=== PATIENT | female | born 1960 | race Caucasian/White ===

== ENCOUNTER 2017-05-30 10:46 | Emergency (ER) | payer BC ==
[2017-05-30 13:21] VITALS: BP 109/77
--- NOTE | 2017-05-30 13:34 | UC ---
Lower Extremity/Ankle HPI - HPI Summary HPI Summary: 57 y/o female presents to the urgent care c/o RT ankle pain and swelling s/p been hit by a 300lb calf that fell on top of her RT ankle around 0930 am. Pt Pt states she heard a pop. Pain is throbbing, 8/10 and associated with mild numbness over the lateral side of her Rt ankle. She was not able to bear weight after the incident. she has not taking anything to alleviate symptoms. Pt denies SOB, chest pain, abdominal pain, N/V/D - History of Current Complaint Chief Complaint: UCLowerExtremity Stated Complaint: ANKLE INJURY Time Seen by Provider: 05/30/17 13:32 Hx Obtained From: Patient Hx Last Menstrual Period: Menopausal ?: No Onset/Duration: Sudden Onset, Lasting Hours - 3 hrs, Still Present Severity Initially: Moderate Severity Currently: Moderate Pain Intensity: 8 Pain Scale Used: 0-10 Numeric Aggravating Factor(s): Standing, Ambulation Alleviating Factor(s): Rest, Ice Able to Bear Weight: No - Allergies/Home Medications Allergies/Adverse Reactions: Allergies Allergy/AdvReac Type Severity Reaction Status Date / Time No Known Allergies Allergy Verified 05/30/17 13:21 PMH/Surg Hx/FS Hx/Imm Hx Previously Healthy: Yes - Pt denies PMHX - Surgical History Surgical History: Yes Surgery Procedure, Year, and Place: c-sections X2 - Social History Alcohol Use: Occasionally Substance Use Type: None Smoking Status (MU): Heavy Every Day Tobacco Smoker Type: Cigarettes - Immunization History Most Recent Influenza Vaccination: 2014 Most Recent Tetanus Shot: unknown Most Recent Pneumonia Vaccination: never Review of Systems Constitutional: Negative Skin: Negative Eyes: Negative ENT: Negative Respiratory: Negative Cardiovascular: Negative Gastrointestinal: Negative Genitourinary: Negative Motor: Decreased ROM - RT ankle s/p injury Neurovascular: Negative Musculoskeletal: Decreased ROM - Rt ankle, Other: - RT ankle pain and swelling s/p injury with a calf Neurological: Negative Psychological: Negative Is Patient Immunocompromised?: No All Other Systems Reviewed And Are Negative: Yes Physical Exam Triage Information Reviewed: Yes Vital Signs: Initial Vital Signs Temp 99.9 F 05/30/17 13:18 Pulse 86 05/30/17 13:18 Resp 18 05/30/17 13:18 BP 109/77 05/30/17 13:18 Pulse Ox 98 05/30/17 13:18 - Additional Comments Vital Signs Reviewed: Yes General: well developed, well nourished female, sitting in the examining table w /o any apparent distress Eyes: Positive: Conjunctiva Clear - PERRLA, EOMI, ENT: Positive: Normal ENT inspection, Hearing grossly normal, Pharynx normal, TMs normal Neck: Positive: Supple, Nontender, No Lymphadenopathy Respiratory: Positive: Chest non-tender, Lungs clear, Normal breath sounds, No respiratory distress Cardiovascular: Positive: RRR, No Murmur, Pulses Normal, Brisk Capillary Refill Abdomen Description: Positive: Nontender, No Organomegaly, Soft. Negative: CVA Tenderness (R), CVA Tenderness (L) Bowel Sounds: Positive: Present Musculoskeletal: - RT Ankle: Pt is unable to bear weight due to pain. The R ankle is without obvious asymmetry or deformity when compared to the L ankle. Decreased ROM due to pain. Moderate swelling at the lateral malleolus, with tenderness to palpation. No ecchymosis or bruising observed. Tenderness to palpation over the medial malleolus , no swelling observed. Talar tilt test is negative for ligament laxity to valgus or varus stress. Negative anterior drawer. Positive sensation over the Rt foot and Rt ankle, positive pulses, capillary refill intact Neurological Exam: Normal Psychological Exam: Normal Skin: warm and dry Lower Extremity Course/Dx - Course Course Of Treatment: 57 y/o female presents to the urgent care c/o RT ankle pain and swelling s/p been hit by a 300lb calf that fell on top of her RT ankle around 0930 am. Pt Pt states she heard a pop. Pain is throbbing, 8/10 and associated with mild numbness over the lateral side of her Rt ankle. She was not able to bear weight after the incident. She has not taking anything to alleviate symptoms. Pt denies SOB, chest pain, abdominal pain, N/V/D. Hx obtained. Pt given Toradol IM inj at the clinic for pain. Pt tolerated well Im inj and pain decrease. RT ankle X-ray and ordered, Impression:Mildly distracted fracture of the distal fibula metaphysis w/ mild comminution as per radiologist. Pt's ankle immobilized with a stirup splint. There was no neurovascular compromise after splint application; the splint was in good alignment and the pt had good sensation and capillary refill at the time of discharge.Pt given crutches to avoid weight bearing. Rx Naproxen PO for pain and advised RICE. Strongly advised to f/u with Orthopedic DR Gonzalez tomorrow for further evaluation and treatment. Pt Understood and geed with plan of care. Pt left the clinic hemodynamically stable, A&OX3 - Differential Dx/Diagnosis Differential Diagnosis/HQI/PQRI: Dislocation, Fracture (Closed), Fracture (Open) , Sprain, Strain, Tendonitis Provider Diagnoses: 1- RT distal oblique fibular fracture s/p trauma. 1-RT ankle pain s/p trauma Discharge - Discharge Plan Condition: Stable Disposition: HOME Prescriptions: Naproxen [Naproxen 500 mg] 500 mg PO Q8H PRN #30 tab PRN Reason: Pain Patient Education Materials: Ankle Fracture (ED) Forms: *Work Release Referrals: Josue Gonzalez MD [Medical Doctor] - 1 Day Miguel FLOYD,Navi Dunn [Primary Care Provider] - 1 Day Additional Instructions: 1- Please take medication as directed after meals for pain and swelling. 2- Apply ice, keep ankle elevated, rest and keep it immobilized with the splint. do not bear weight and use the crutches at all times 3-F/u with Orthopedic Dr Gonzalez tomorrow for further evaluation and treatment on your fibular fracture
[2017-05-30] MEDS ORDERED: Ketorolac INJ* 60 MG/2 ML VIAL IM ONE (13:48)
--- NOTE | 2017-05-30 14:03 | RAD ---
INDICATION: Traumatic fracture right ankle COMPARISON: None TECHNIQUE: AP, lateral, and oblique views were obtained. FINDINGS: There is an oblique, mildly distracted fracture the distal fibular metadiaphysis. There is mild comminution. No other fractures are evident. The ankle mortise is intact. There is lateral soft tissue swelling. IMPRESSION: FIBULAR FRACTURE.
== END 2017-05-30 14:46 | disposition home or self-care (01) ==
LOC: UCEAST 10:46
DX: S82.431A Displaced oblique fracture of shaft of right fibula, initial encounter for closed fracture (principal); W55.22XA Struck by cow, initial encounter; Y92.9 Unspecified place or not applicable; M25.571 Pain in right ankle and joints of right foot; Z78.0 Asymptomatic menopausal state; F17.210 Nicotine dependence, cigarettes, uncomplicated
CPT/HCPCS: 99213; G0463; J1885

== ENCOUNTER 2018-09-15 12:14 | Emergency (ER) | payer BC ==
--- NOTE | 2018-09-15 12:39 | UC ---
Cardiac HPI - HPI Summary HPI Summary: CHIEF COMPLAINT and HPI: This is a 58-year-old female who comes to the urgent care center with various complaints relating to dizziness. This morning she was in a shower and she lifted her left arm up overhead and she became dizzy and thought she would faint. At the time, she also had some sharp chest discomfort. This condition resolved in approximately 3 minutes. She then went to work. 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 This resolved with sitting down. 36 hours ago , overnight, she experienced leg cramps over the medial aspects of both thighs. She has had this condition before, but this was more frequent, approximately 5 times throughout the night. Approximately 3 years ago. She was fully evaluated for an elevated troponin as well as thyroid toxicosis and GERD. In the urgent care center. She is comfortable and without chest pain at the current time. An immediate EKG was sinus rhythm without ischemia. VITAL SIGNS & SaO2 REVIEWED. Within normal limits unless noted here. NURSES NOTE REVIEWED. "leg cramps innner thighs strating yesterday, this morning whil in shower left arm andhsulder numness and heavy chest pain centered. dizzy since this morning , slight nuasea /heartburn feeling. HX 3 yrs ago to ed with some troponin level elevated no cardiac diagnosis." was hopsitalized 2015 for dizziness , showed elevated troponin" - History of Current Complaint Chief Complaint: UCChestPain Stated Complaint: DICOMFORT Time Seen by Provider: 09/15/18 12:19 Hx Last Menstrual Period: Menopausal Pain Intensity: 2 - Allergy/Home Medications Allergies/Adverse Reactions: Allergies Allergy/AdvReac Type Severity Reaction Status Date / Time No Known Allergies Allergy Verified 09/15/18 12:29 Home Medications: Home Medications NK [No Home Medications Reported] 09/15/18 [History Confirmed 09/15/18] PMH/Surg Hx/FS Hx/Imm Hx - Additional Past Medical History Additional PMH: PAST MEDICAL HISTORY- evaluated for elevated troponin approximately 3 years ago.. Negative for CVD. CHRONIC and RECURRENT HEALTH PROBLEM LIST REVIEWED. anxiety, thyroid abnormality, legs crampsm smoker. Information relevant to present complaint: VISIT HISTORY REVIEWED. MEDICATIONS & ALLERGIES REVIEWED. 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 . - Surgical History Surgical History: Yes Surgery Procedure, Year, and Place: c-sections X2 - Social History Alcohol Use: Occasionally Substance Use Type: None Smoking Status (MU): Heavy Every Day Tobacco Smoker Type: Cigarettes - Immunization History Most Recent Influenza Vaccination: 2014 Most Recent Tetanus Shot: unknown Most Recent Pneumonia Vaccination: never Review of Systems All Other Systems Reviewed And Are Negative: Yes Constitutional: Positive: Negative Skin: Positive: Negative Eyes: Positive: Negative ENT: Positive: Negative Respiratory: Positive: Negative. Negative: Shortness Of Breath Cardiovascular: Positive: Negative, Chest Pain - this morning; central chest; less than 3 minutes. Negative: Palpitations Gastrointestinal: Positive: Negative Psychological: Positive: Anxious Is Patient Immunocompromised?: No Physical Exam - Summary Physical Exam Summary: Appearance: The patient is well-appearing, is in no pain or distress, and is well-nourished. Eyes: Conjunctiva are clear. Pupils are equal and reactive to light and accommodation. Extra ocular muscle movement is intact. ENT: The hearing is grossly normal, the pharynx is normal, and the TMs are normal. There is no muffled or hoarse voice. No stridor. Neck: The neck is supple and there is no lymphadenopathy. Respiratory: The chest is non-tender to palpation and without crepitus. The lungs are clear, there are normal breath sounds, and there is no respiratory distress. No wheezes, rales or rhonchi. Cardiovascular: Heart sounds reveal a regular rate and rhythm. There are no clicks, rubs or murmurs. There are no carotid bruits or thrills. Circulation is grossly intact. Abdomen: The abdomen is soft and nontender. There is no organomegaly. Bowel sounds are present and within normal limits. No point tenderness at McBurneys point. No CVA tenderness. Musculoskeletal: Strength is intact. The patient moves all extremities. Neurological: The patient is alert. Motor and sensory are examination grossly intact. Speech is normal. Mild vertigo with stand and head movement. No nystagmus. Psychological: The patient displays age appropriate behavior, and is conversant. GCS=15. Skin: Negative for rashes. Vital Signs: Initial Vital Signs Temp 99.4 F 09/15/18 12:23 Pulse 89 09/15/18 12:23 Resp 18 09/15/18 12:23 BP 110/89 05/16/19 12:23 Pulse Ox 100 09/15/18 12:23 - Assessment/Plan Course Of Treatment: MEDICAL DECISION MAKING and PLAN: This is a 58-year-old female who comes to the urgent care center with various complaints relating to dizziness. This morning she was in a shower and she lifted her left arm up overhead and she became dizzy and thought she would faint. At the time, she also had some sharp chest discomfort. This condition resolved in approximately 3 minutes. She then went to work. 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 This resolved with sitting down. 36 hours ago, overnight, she experienced leg cramps over the medial aspects of both thighs. She has had this condition before, but this was more frequent, approximately 5 times throughout the night. Approximately 3 years ago. She was fully evaluated for an elevated troponin as well as thyroid toxicosis and GERD. In the urgent care center. She is comfortable and without chest pain at the current time. An immediate EKG was sinus rhythm without ischemia. Review of systems noted that she had one episode of diarrhea at 11:30 this morning. Past medical history is contributory for anxiety, smoking, migraines and GERD. She is not taking any thyroid medication. Physical examination shows a woman resting comfortably. The examination was normal with the exception that when she stood, she did complain of a moment of vertigo when she moved her head. Orthostatics were within normal limits, however. My differential included vertigo and other conditions that could cause presyncope, but on evaluation, it appears that she most likely has vertigo and intermittent pre-syncopy, possibly related to a viral syndrome. Note is also made of her glucose of 130. Patient is also a smoker but there is no hx of MA, arrythmia of family hx of CVD. We discussed the possibility of her going to the emergency room at length. We decided that I would draw her blood and she would be seen, if at all possible, by her physician tomorrow and that she would go to the ED if she had any repeat episodes. MEDICATIONS REVIEWED. HYPERTENSION STATUS REVIEWED WITH PATIENT IF blood pressure is above 120/80. - Differential Diagnoses - Chest Pain Differential Diagnosis/HQI/PQRI: Acute MA, ACS, Chest Wall, Other: - orthostasis ; anxiety; vertigo; viral syndrome - Differential Diagnoses - Palpitations Differential Diagnosis/HQI/PQRI: Hyperventilation, Panic Disorder - Clinical Impression Provider Diagnosis: Pre-syncope Discharge - Sign-Out/Discharge Documenting (check all that apply): Patient Departure All imaging exams completed and their final reports reviewed: No Studies - Discharge Plan Condition: Stable Disposition: HOME Patient Education Materials: Vertigo (DC), Near Syncope (ED) Forms: *Work Release Referrals: Miguel FLOYD,Navi Dunn [Primary Care Provider] - Additional Instructions: WE DISCUSSED: PLEASE SEEK CARE AT THE EMERGENCY DEPARTMENT IF SYMPTOMS WORSEN OR IF NEW SYMPTOMS DEVELOP. FOLLOW UP WITH YOUR PRIMARY CARE PHYSICIAN TOMORROW. CALL US WITH ANY CONCERNS. I WILL BE HERE IN 2 DAYS. YOUR DIAGNOSIS IS: vertigo and almost fainting; your EKG was normal and your examination was normal as well. They tested your blood pressure and pulse sitting and standing and there was no abnormality there. However, you still do have the feeling of a mild kind of dizziness when you stand. I've drawn blood tests to recheck your glucose as well as your thyroid. Call your doctor for evaluation tomorrow. Go to the emergency department if you have any chest pain or shortness of breath. You may need further evaluation. YOUR PRESCRIPTION RECOMMENDATION IS: none FOR PAIN AND/OR SLEEP: For pain: Ibuprofen (Motrin and other brand names) 400-600mg PLUS acetaminophen (Tylenol and other brand names) 500mg - 1000mg every 8 hours. - Billing Disposition and Condition Condition: STABLE Disposition: Home
[2018-09-15 14:30] VITALS: BP 124/72
[2018-09-15 19:14] LABS: ABS Eosinophils 0.1 10^3/ul (0-0.6); ABS Lymphocytes 1.9 10^3/ul (1.0-4.8); ABS Monocytes 0.5 10^3/ul (0-0.8); ABS Neutrophils 2.7 10^3/ul (1.5-7.7); Eosinophil % 1.1 %; Hematocrit 40 % (35-47); Hemoglobin 13.6 g/dL (12.0-16.0); Mean Corpuscular HGB Conc 34 g/dL (31-36); Mean Corpuscular Hemoglobin 31 pg (27-31); Mean Corpuscular Volume 91 fL (80-97); Nucleated Red Blood Cells % 0.1; Platelet Count 229 10^3/uL (150-450); Red Blood Count 4.36 10^6 /uL (3.70-4.87); Red Cell Distribution Width 13 % (10.5-15); White Blood Count 5.2 10^3/uL (3.5-10.8)
[2018-09-15 19:22] LABS: Albumin 4.3 g/dL (3.2-5.2); Calcium 9.6 mg/dL (8.6-10.3); Potassium 4.2 mmol/L (3.5-5.0); Total Bilirubin 0.4 mg/dL (0.2-1.0)
[2018-09-15 19:28] LABS: Albumin/Globulin Ratio 1.5 (1-3); BUN/Creatinine Ratio 13.5 (8-20); EGFR African American 97.5 (>60); EGFR Non-African American 80.6 (>60); Globulin 2.8 g/dL (2-4); Total Protein 7.1 g/dL (6.4-8.9)
[2018-09-16 13:48] LABS: Free T4 1.23 ng/dL (0.61-1.12)
--- NOTE | 2018-09-17 10:51 | UC ---
- Progress Note Progress Note: PROGRESS NOTE: LAB RESULTS: TSH=0; FREE T-4 = 1.23 (1.12 is upper limit of normal) MDM: Patient knows about her condition and has consulted with her primary healthcare prof. No change in current treatment. Zia Chambers MD Course/Dx - Diagnoses Provider Diagnoses: Pre-syncope Discharge - Sign-Out/Discharge Documenting (check all that apply): Post-Discharge Follow Up All imaging exams completed and their final reports reviewed: No Studies - Discharge Plan Condition: Stable Disposition: HOME Patient Education Materials: Vertigo (DC), Near Syncope (ED) Forms: *Work Release Referrals: Miguel FLOYD,Navi Dunn [Primary Care Provider] - Additional Instructions: WE DISCUSSED: PLEASE SEEK CARE AT THE EMERGENCY DEPARTMENT IF SYMPTOMS WORSEN OR IF NEW SYMPTOMS DEVELOP. FOLLOW UP WITH YOUR PRIMARY CARE PHYSICIAN TOMORROW. CALL US WITH ANY CONCERNS. I WILL BE HERE IN 2 DAYS. YOUR DIAGNOSIS IS: vertigo and almost fainting; your EKG was normal and your examination was normal as well. They tested your blood pressure and pulse sitting and standing and there was no abnormality there. However, you still do have the feeling of a mild kind of dizziness when you stand. I've drawn blood tests to recheck your glucose as well as your thyroid. Call your doctor for evaluation tomorrow. Go to the emergency department if you have any chest pain or shortness of breath. You may need further evaluation. YOUR PRESCRIPTION RECOMMENDATION IS: none FOR PAIN AND/OR SLEEP: For pain: Ibuprofen (Motrin and other brand names) 400-600mg PLUS acetaminophen (Tylenol and other brand names) 500mg - 1000mg every 8 hours. - Billing Disposition and Condition Condition: STABLE Disposition: Home
== END 2018-09-15 14:26 | disposition home or self-care (01) ==
LOC: UCEAST 12:14
DX: R55 Syncope and collapse (principal); E07.9 Disorder of thyroid, unspecified; F17.210 Nicotine dependence, cigarettes, uncomplicated
CPT/HCPCS: 36415; 80053; 84439; 84443; 84479; 85025; 99212; G0463